=== PATIENT | female | born 1930 | race Caucasian/White ===

== ENCOUNTER 2018-02-05 14:43 | Inpatient (IN) | payer MEDICARE ==
[~2018-02-05 14:43] MED LIST: ISOVUE-370 76%-LOCM 1 ML ONE
[2018-02-05 15:35] LABS: #Basophils 0.1 thou/uL (0.0-0.2); #Eosinphils 0.2 thou/uL (0.0-0.7); #Monocytes 0.5 thou/uL (0.11-0.59); #Neutrophils 4.6 thou/uL (1.40-6.50); %Basophils 0.7 % (0.0-1.0); %Eosinophils 3.3 % (0.0-10.0); %Lymphocytes 27.2 % (21.0-51.0); %Monocytes 7.3 % (0.0-10.0); %Neutrophils 61.5 % (42.0-75.0); Hemoglobin 12.7 g/dL (12.0-16.0); Mean Corpuscular HGB CONC 33.5 g/dL (32.0-36.0); Mean Corpuscular Hemoglobin 31.9 pg (27.0-31.0); Mean Corpuscular Volume 95.2 fl (81.0-99.0); Mean Platelet Volume 7.4 fL (7.4-10.4); Platelet Count 242 thou/uL (130-400); RBC Distribution Width 12.6 % (11.5-14.5); Red Blood Cell (RBC) Count 3.99 mill/uL (4.20-5.40); White Blood Cell (WBC) Count 7.4 thou/uL (4.8-10.8)
[2018-02-05 16:04] LABS: ALT (SGPT) 13 U/L (8-55); AST (SGOT) 19 U/L (5-34); Albumin 4.2 g/dL (3.4-4.8); Alkaline Phosphatase 70 U/L (40-150); Anion Gap 10 mmol/L (10-20); BUN (Urea Nitrogen) 23 mg/dL (9.8-20.1); Bilirubin, Total 0.5 mg/dL (0.2-1.2); CK (CPK) 121 U/L (29-168); Calc. Creatinine Clearance 0 mL/min (70-130); Calcium 9.7 mg/dL (7.8-10.44); Carbon Dioxide 23 mmol/L (23-31); Chloride 109 mmol/L (98-107); Estimated GFR-MDRD 56; Globulin 3.3 g/dL (2.4-3.5); Glucose 94 mg/dL (83-110); Potassium 4.3 mmol/L (3.5-5.1); Protein, Total 7.5 g/dL (6.0-8.3); Sodium 138 mmol/L (136-145)
[2018-02-05 16:19] LABS: CKMB 1.7 ng/mL (0-6.6); Troponin I Less than 0.010 ng/mL (< 0.028)
--- NOTE | 2018-02-05 17:23 | CT ---
NONCONTRAST CT HEAD: Date: 02/05/18 HISTORY: Headache and dizziness. COMPARISON: None available. FINDINGS: Scattered minimal areas of diminished attenuation are seen in the periventricular white matter which are nonspecific but likely reflective of mild chronic small vessel ischemic changes. Small low densit y area is seen within the right cerebellar hemisphere, probably related to small remote infarction. T here is no evidence of an acute cortical infarction, hemorrhage, mass effect, or midline shift. The v entricular system is normal in size, shape, and position. The left maxillary antrum is incompletely imaged, but there is a small air fluid level present. Remai nder of the visualized paranasal sinuses and mastoid air cells are clear. Calvarial structures are in tact. IMPRESSION: 1. No acute intracranial abnormality is demonstrated. 2. Mild chronic small vessel ischemic changes. 3. Small remote infarction right cerebellar hemisphere. 4. Mild sinus disease. POS: [facility]
--- NOTE | 2018-02-05 17:26 | CT ---
CT CERVICAL SPINE WITHOUT CONTRAST: Date: 02/05/18 HISTORY: Headache. Dizziness. Pain. COMPARISON: None. TECHNIQUE: Cervical spine CT is performed without contrast. Reformatted images are submitted for interpretation. FINDINGS: Limited evaluation due to motion degradation. No soft tissue neck abnormality. There is no craniocervical dissociation. Lateral masses of C1 and C2 articulate appropriately. Approp riate articulation of the facets. Odontoid process is intact. Mild degenerative changes atlantoaxial articulation. There are degenerative changes of the facets with facet hypertrophy. There are varying degrees of josette tral canal stenosis and foraminal narrowing on the basis of degenerative change. Evaluation limited b y technique. Upper mediastinum and lung apices are grossly unremarkable. There is mild diffuse osteopenic change. No evidence of cervical spine fracture. Anterolisthesis of C2 upon C3, C3 upon C4 due to degenerative change. IMPRESSION: Extensive degenerative changes of cervical spine, without evidence of fracture. POS: [facility]
[2018-02-05 17:59] LABS: Bilirubin Negative (Negative); Blood, Urine Negative (Negative); Clarity CLEAR (Clear); Glucose, Urine (Dipstick) Negative (Negative); Leukocyte Small (Negative); Nitrite Negative (Negative); Protein, Urine (Dipstick) Negative (Neg-Trace); Specific Gravity, Urine 1.013 (1.002-1.036); Urobilinogen 0.2 mg/dL (0.2-1.0)
[2018-02-05 18:02] LABS: Bacteria/HPF None Seen HPF (None Seen); Hyaline Casts/LPF 0-3 HYALINE CAST LPF (0-3 Hyaline); RBC/HPF 0-3 HPF (0-3); Squamous Epithelial 0-3 HPF (0-3)
[2018-02-05] MEDS ORDERED: Aspirin 81 mg Enteric Coated Tablet ONE (18:52)
[2018-02-05] MEDS ORDERED: Senokot 8.6 MG TAB PO PRN (20:53)
[2018-02-05] MEDS ORDERED: Bisacodyl 5 MG TAB PO PRN (20:53)
[2018-02-05] MEDS ORDERED: Bisacodyl 10 MG SUPP PR PRN (20:53)
[2018-02-05] MEDS ORDERED: Acetaminophen 325 MG TAB PO PRN (20:53)
[2018-02-05] MEDS ORDERED: Ondansetron HCl/PF 4 MG/2 ML Vial IVP PRN (20:53)
--- NOTE | 2018-02-05 22:11 | CT ---
CT ANGIOGRAM OF BRAIN WITH IV CONTRAST AND 3D MIP RECONSTRUCTIONS: Date: 02/05/18 PROVIDED CLINICAL HISTORY: Dizziness. FINDINGS: There is no evidence for focal vessel stenosis, branch occlusion, or aneurysm involving the intracran ial vasculature. Vascular calcifications involve the cavernous portion of the internal carotid arteri es bilaterally. IMPRESSION: No evidence for focal vessel stenosis, branch occlusion, or aneurysm. POS: [facility]
--- NOTE | 2018-02-05 22:13 | CT ---
CT ANGIOGRAM OF THE GREAT VESSELS OF THE NECK WITH IV CONTRAST AND 3D MIP RECONSTRUCTIONS: Date: 02/05/18 PROVIDED CLINICAL HISTORY: Neck pain and dizziness. FINDINGS: Evaluation of the proximal great vessels is limited due to beam-hardening artifact. There is three ve ssel configuration of the great vessels at the arch. There is no evidence for a significant stenosis involving either internal carotid artery. Minimal atherosclerotic plaque involves the right carotid b ulb. Degenerative changes are noted involving the cervical spine. IMPRESSION: No evidence for a significant stenosis involving the great vessels of the neck. POS: [facility]
[2018-02-05 23:55] VITALS: BMI 31.0
[2018-02-06 05:39] LABS: #Eosinphils 0.3 thou/uL (0.0-0.7); #Lymphocytes 1.7 thou/uL (1.20-3.40); #Monocytes 0.7 thou/uL (0.11-0.59); #Neutrophils 5.8 thou/uL (1.40-6.50); %Basophils 0.3 % (0.0-1.0); %Eosinophils 3.3 % (0.0-10.0); %Lymphocytes 20.2 % (21.0-51.0); %Monocytes 7.6 % (0.0-10.0); %Neutrophils 68.5 % (42.0-75.0); Hemoglobin 11.9 g/dL (12.0-16.0); Mean Corpuscular HGB CONC 33.4 g/dL (32.0-36.0); Mean Corpuscular Hemoglobin 31.6 pg (27.0-31.0); Mean Corpuscular Volume 94.6 fl (81.0-99.0); Mean Platelet Volume 7.7 fL (7.4-10.4); Platelet Count 221 thou/uL (130-400); RBC Distribution Width 12.6 % (11.5-14.5); Red Blood Cell (RBC) Count 3.76 mill/uL (4.20-5.40); White Blood Cell (WBC) Count 8.5 thou/uL (4.8-10.8)
--- NOTE | 2018-02-06 05:52 | HP ---
PRIMARY CARE PHYSICIAN: Alberto Butterfield M.D. CHIEF COMPLAINT: Dizziness. HISTORY OF PRESENT ILLNESS: This is an 87-year-old female with a history of gastroesophageal reflux disease, hyperlipidemia, hypertension, who initially presented with a chief complaint of dizziness ac companied by left-sided neck pain radiating to upper jaw. The patient denies any prior episodes of t his discomfort, although she has had multiple episodes so far since waking up this morning. More recently, the patient describes a generalized feeling "unwell" that involved fatigue, but dejah mccormick had no other localizing or focal symptoms over this past weekend. She attributed some of her sym ptoms to allergies and took some Benadryl without any improvement in her symptoms. The patient denie s any prior episodes of dizziness or left-sided neck pain before. REVIEW OF SYSTEMS: As per HPI. Constitutional: No significant recent weight changes, no fevers, no chills. HEENT: Dizziness as described above. No loss of consciousness, feeling like the room is s pinning. Denies any changes in vision other than feeling some blurriness when she has episodes of di zziness. No new headaches. She thinks that movement sometimes makes the dizziness worse, but not al ways. Cardiovascular: No chest pain, no chest pressure, no left-sided arm numbness or weakness. No palpitations. Respiratory: No shortness of breath, no dyspnea with exertion. No cough. No recent overt upper respiratory infection. Gastrointestinal: No nausea, no vomiting. She has been able to eat despite her symptoms. Retained appetite. No diarrhea, no constipation. Genitourinary: No rec ent issues with dysuria, changes in urinary frequency, color or quantity. Musculoskeletal: No new m yalgias or arthralgias. Remainder of the review of systems is otherwise negative. PAST MEDICAL HISTORY: As per above. Hypertension, hyperlipidemia, gastroesophageal reflux disease, recent diagnosis of a skin cancer that has been treated with topical chemotherapy, which she has rece ntly completed about 2 weeks ago. PAST SURGICAL HISTORY: 1. Status post bilateral carpal tunnel surgery. 2. Status post bilateral shoulder surgery. 3. Status post right knee surgery. 4. Status post hysterectomy. 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 The patient denies any knowledge of such an event. HOME MEDICATIONS: Please see the EMR for full details, include Lasix, pantoprazole, Crestor, valsart an without any recent changes to her regimen in the last month. Other than the OTC Benadryl, the pat karla has not taken any new medications, over the counter, denies any new vitamins or supplements as w ell. ALLERGIES: Include SULFA MEDICATIONS. FAMILY HISTORY: Denies any known family history of stroke or cardiovascular disease. SOCIAL HISTORY: The patient is accompanied by the family here today. She wishes to be FULL CODE at this point in time. Denies any active alcohol, tobacco or illicit drug use. PHYSICAL EXAMINATION: GENERAL: The patient is awake, alert, and oriented x3, in no acute distress, lying in the hospital b ed. HEENT: Normocephalic, atraumatic. Equal ocular motions are intact. Cranial nerves II-XII grossly i ntact. Moist mucous membranes. No posterior oropharyngeal erythema or exudate. CARDIOVASCULAR: S1, S2. No murmurs, rubs or gallops. Pulses 2+ bilateral upper extremities, no pit ting pedal edema. Pulses 2+ bilateral lower extremities. No carotid bruits. RESPIRATORY: Reasonable air movement. No wheezes, rales or rhonchi. No conversational dyspnea. LUNGS: Clear to auscultation bilaterally. ABDOMEN: Positive bowel sounds, soft, nontender to palpation. MUSCULOSKELETAL: Moving all 4 extremities independently on command. IMAGING AND LABORATORY DATA: On 02/05/2018, CT of the brain. Impression: "No acute intracranial ab normality is demonstrated. Mild chronic small vessel ischemic changes. right cerebellar hemis phere. Mild sinus disease." On 02/05/2018, cervical spine CT. Impression: Extensive degenerative changes of cervical spine without evidence of fracture. WBC 7.4, hemoglobin 12.7, hematocrit 37.9, platelets 242. Sodium 138, potassium 4.3, chloride 109, b icarbonate 23, BUN 23, creatinine 0.94, glucose 94, calcium 9.7, total bilirubin 0.5, AST 19, ALT 13, alkaline phosphatase 70, creatine kinase 121, troponin less than 0.01. Total protein 7.5, albumin 4.2. UA significant for small leukoesterase, urine wbc's of 4-6. ASSESSMENT AND PLAN: This is an 87-year-old female presenting with a chief complaint of dizziness ac companied by left-sided neck discomfort. 1. The patient does not appear to be having ACS as the etiology of her presentation. We will check a second troponin. 2. The patient apparently have a prior stroke that she was not symptomatic aware of previousl y. The likelihood and the risk that she has sustained another similar event. We will follow up with an MRI of the brain. I appreciate Neurology consultation. Start aspirin and statin. Check fasting lipid panel in the morning. Involve physical therapy as well. 3. Hypertension, currently stable. 4. Hyperlipidemia. See above. Currently, stable. Continue home regimen. 5. Gastroesophageal reflux disease, stable. 6. Diet: Cardiac. 7. Activity: As tolerated. 8. Deep venous thrombosis prophylaxis with enoxaparin. Admit the patient to observation status. Thank you for asking me to care for the patient. Questions or concerns, contact me at [facility]
[2018-02-06 05:57] LABS: Anion Gap 7 mmol/L (10-20); BUN (Urea Nitrogen) 21 mg/dL (9.8-20.1); Calc. Creatinine Clearance 61 mL/min (70-130); Calcium 9.3 mg/dL (7.8-10.44); Carbon Dioxide 27 mmol/L (23-31); Cardiac Risk 3.8 (Less than 4.5); Chloride 109 mmol/L (98-107); Cholesterol 147 mg/dl (< 200 Desired); Estimated GFR-MDRD 67; Glucose 94 mg/dL (83-110); HDL Cholesterol 39 mg/dL (>60 Neg Risk); LDL Cholesterol, Calculated 70 mg/dL; Potassium 4.4 mmol/L (3.5-5.1); Sodium 139 mmol/L (136-145); Triglycerides 191 mg/dL (Less than 150)
[2018-02-06] MEDS ORDERED: Enoxaparin Sodium 30 MG/0.3 ML SYRINGE SC SCH ×2 (09:00)
--- NOTE | 2018-02-06 09:27 | MRI ---
BRAIN MRI WITHOUT COTNRAST: DATE: 02/06/18. COMPARISON: None available. HISTORY: Headaches and dizziness. TECHNIQUE: Multiplanar, multisequence MR imaging of the brain is obtained without contrast. FINDINGS: The diffusion weighted imaging demonstrates no evidence for acute infarction. The axial gradient echo imaging demonstrates no evidence for intracranial hemorrhage. There are a few subcentimeter foci of increased T2 and FLAIR signal within the periventricular deep a nd subcortical white matter suggesting small-vessel disease. The regional bone marrow signal intensi ty appears grossly unremarkable. There is mild mucosal thickening of the left maxillary sinus. Arterial flow voids at the axial level of the skull base appear grossly unremarkable on the T2 weighted imaging. IMPRESSION: Small-vessel disease with no evidence for intracranial hemorrhage or acute infarction. POS: [facility]
[2018-02-06] MEDS ORDERED: Sodium Chloride 0.65% Nasal 44 ML BOT EA NARE PRN (10:49)
[2018-02-06] MEDS ORDERED: Lidocaine 5% Patch TD SCH (12:00)
[2018-02-06] MEDS ORDERED: Cipro 250 MG TAB PO SCH ×2 (12:15→20:00)
[2018-02-06 15:52] VITALS: BP 158/68; TEMP 97.9
[2018-02-06] MEDS ORDERED: Lidocaine Patch Removal 1 EACH TOP SCH (23:59)
--- NOTE | 2018-02-10 22:15 | EKG ---
Test Reason : Blood Pressure : / mmHG Vent. Rate : 066 BPM Atrial Rate : 066 BPM P-R Int : 182 ms QRS Dur : 084 ms QT Int : 390 ms P-R-T Axes : 050 -15 099 degrees QTc Int : 408 ms Normal sinus rhythm Left ventricular hypertrophy with repolarization abnormality Abnormal ECG Confirmed by MARIA ESTHER GUILLORY D.O. ([id number]), editor map CB GALVAN ([id number]) on 02/10/2018 10:14:20 PM Referred By: Confirmed By:MARIA ESTHER GUILLORY D.O.
--- NOTE | 2018-02-10 22:15 | EKG ---
Test Reason : Blood Pressure : / mmHG Vent. Rate : 071 BPM Atrial Rate : 071 BPM P-R Int : 188 ms QRS Dur : 086 ms QT Int : 412 ms P-R-T Axes : 047 -13 106 degrees QTc Int : 447 ms Normal sinus rhythm Left ventricular hypertrophy with repolarization abnormality Abnormal ECG Confirmed by MARIA ESTHER GUILLORY D.O. ([id number]), design editor CB GALVAN ([id number]) on 02/10/2018 10:14:24 PM Referred By: Confirmed By:MARIA ESTHER GUILLORY D.O.
== END 2018-02-06 16:34 | disposition home or self-care (01) | DRG 149 ==
LOC: ERS 14:43 → 2SE 19:15
PROVIDERS: ADMIT Emergency Medicine; ATTEND Emergency Medicine
DX: R42 Dizziness and giddiness (principal); K21.9 Gastro-esophageal reflux disease without esophagitis; E78.5 Hyperlipidemia, unspecified; I10 Essential (primary) hypertension; Z85.828 Personal history of other malignant neoplasm of skin; Z92.21 Personal history of antineoplastic chemotherapy; Z88.2 Allergy status to sulfonamides; Z79.82 Long term (current) use of aspirin; I25.2 Old myocardial infarction
CPT/HCPCS: 36415; 70450; 70496; 70498; 70551; 72125; 80048; 80053; 80061; 81003; 81015; 82550; 82553; 84484; 85025; 87086; 93005; J1650

== ENCOUNTER 2018-02-08 09:05 | Emergency (ER) | payer MEDICARE ==
[2018-02-08 09:42] LABS: #Eosinphils 0.2 thou/uL (0.0-0.7); #Lymphocytes 1.1 thou/uL (1.20-3.40); #Monocytes 0.6 thou/uL (0.11-0.59); #Neutrophils 5.8 thou/uL (1.40-6.50); %Basophils 0.5 % (0.0-1.0); %Eosinophils 3.1 % (0.0-10.0); %Lymphocytes 14.3 % (21.0-51.0); %Monocytes 7.9 % (0.0-10.0); %Neutrophils 74.2 % (42.0-75.0); Hemoglobin 12.7 g/dL (12.0-16.0); Mean Corpuscular HGB CONC 33.3 g/dL (32.0-36.0); Mean Corpuscular Hemoglobin 32.2 pg (27.0-31.0); Mean Corpuscular Volume 96.5 fl (81.0-99.0); Mean Platelet Volume 8.4 fL (7.4-10.4); Platelet Count 217 thou/uL (130-400); RBC Distribution Width 12.8 % (11.5-14.5); Red Blood Cell (RBC) Count 3.95 mill/uL (4.20-5.40); White Blood Cell (WBC) Count 7.8 thou/uL (4.8-10.8)
[2018-02-08 10:05] LABS: ALT (SGPT) 17 U/L (8-55); AST (SGOT) 26 U/L (5-34); Alkaline Phosphatase 70 U/L (40-150); Anion Gap 13 mmol/L (10-20); BUN (Urea Nitrogen) 20 mg/dL (9.8-20.1); Bilirubin, Total 0.7 mg/dL (0.2-1.2); Calc. Creatinine Clearance 0 mL/min (70-130); Calcium 9.7 mg/dL (7.8-10.44); Carbon Dioxide 21 mmol/L (23-31); Chloride 108 mmol/L (98-107); Estimated GFR-MDRD 59; Globulin 3.4 g/dL (2.4-3.5); Glucose 115 mg/dL (83-110); Potassium 4.6 mmol/L (3.5-5.1); Protein, Total 7.4 g/dL (6.0-8.3); Sodium 137 mmol/L (136-145)
[2018-02-08 10:21] LABS: Bilirubin Negative (Negative); Blood, Urine Negative (Negative); Clarity CLEAR (Clear); Glucose, Urine (Dipstick) Negative (Negative); Leukocyte Negative (Negative); Nitrite Negative (Negative); Protein, Urine (Dipstick) Negative (Neg-Trace); Specific Gravity, Urine 1.012 (1.002-1.036); Urobilinogen 0.2 mg/dL (0.2-1.0)
[2018-02-08] MEDS ORDERED: Fentanyl 100 MCG/2 ML VIAL ONE (10:33)
[2018-02-08 10:42] LABS: CKMB 2.1 ng/mL (0-6.6); Troponin I Less than 0.010 ng/mL (< 0.028)
[2018-02-08] MEDS ORDERED: Ketorolac Tromethamine 30 MG/ML VIAL ONE (10:58)
--- NOTE | 2018-02-08 11:20 | RAD ---
TWO VIEWS LEFT HIP: Date: 02-08-18 Comparison: None. History: Dizziness, fall. FINDINGS: There is moderate degenerative change involving the left hip with superior joint space narrowing, sub chondral sclerosis, and osteophyte formation. No displaced fracture or dislocation is seen. The left hip is better assessed on CT examination of the pelvis, also performed 02-08-18. IMPRESSION: No displaced fracture or dislocation seen. POS: [facility]
--- NOTE | 2018-02-08 11:33 | CT ---
PELVIC CT WITHOUT CONTRAST: Date: 02/08/18 HISTORY: Patient felt dizzy this morning, while walking. Patient has had a fall. Post-traumatic left hip pain. COMPARISON: None. TECHNIQUE: Pelvic CT is performed without contrast. Reformatted images are submitted for interpretation. FINDINGS: There is degenerative change in both sacroiliac joints. Sacral ala are preserved. No evidence of a co ccygeal fracture. The inferior and superior pubic rami are intact. The bony pelvis is intact. Contour of the left and right femoral head are maintained. No evidence of fracture. Mild bilateral hi p degenerative change. Nonspecific heterotopic calcifications inferior to the posterior left and right pubic rami. Enthesopa thic change is favored. No significant soft tissue swelling or edema. IMPRESSION: No evidence of fracture. If the patient is still unable to bear weight, consider MRI as evaluation ma y be slightly limited by diffuse bone demineralization. POS: [facility]
== END 2018-02-08 11:44 | disposition home or self-care (01) ==
LOC: ERS 09:05
DX: S50.12XA Contusion of left forearm, initial encounter (principal); M25.552 Pain in left hip; E78.5 Hyperlipidemia, unspecified; K21.9 Gastro-esophageal reflux disease without esophagitis; I10 Essential (primary) hypertension; Z86.73 Personal history of transient ischemic attack (TIA), and cerebral infarction without residual deficits; W19.XXXA Unspecified fall, initial encounter
CPT/HCPCS: 36415; 72192; 80053; 81003; 82553; 84484; 85025; 93005; 96374; 96375; J1885; J3010